=== PATIENT | female | born 1955 | race Caucasian/White ===

== ENCOUNTER → 2017-12-12 | Outpatient (CLI) | payer BC ==
[~2017-12-12] MED LIST: ACET500T68 PO; ALBU8.5H IH; DIA5 PO; DIP5L PO; DOCU-416 PO; EZE10 PO; FLU44R IH; FLUT1DIS27 IH; IBU600 PO; IRBE75TA4 PO; LOR5 PO; MON10 PO; OXYC-373 PO; PRE20 PO; TYLENOL PM PO
== END ==
LOC: LAB 14:53
PROVIDERS: ATTEND Surgery
DX: D18.01 Hemangioma of skin and subcutaneous tissue (principal)
CPT/HCPCS: 88305